=== PATIENT | male | born 1990 ===

== ENCOUNTER 2016-11-14 10:25 | Emergency (ER) | payer BC ==
--- NOTE | 2016-11-14 13:56 | UC ---
Ear Complaint HPI - HPI Summary HPI Summary: ONE DAY OF SEVERE LEFT EAR PAIN. PATIENT IS A [employer] TE[employer], SCHOOL NURSE LOOKED IN EAR AND THOUGHT LEGO WAS IN EAR. IN TRIAGE NURSE LOOKED IN BILATERAL EARS, CERUMEN AND EAR TUBES NOTED. [facility] DID NOT RECALL HAVING EAR TUBES SINCE 8TH GRADE. - History of Current Complaint Chief Complaint: UCEar Stated Complaint: LEFT EAR COMPLAINT Time Seen by Provider: 11/14/16 13:17 Hx Obtained From: Patient, Family/Hose Inspector Onset/Duration: Sudden Onset, Lasting Hours Severity Initially: Moderate Severity Currently: Moderate Associated Signs/Symptoms: Positive: Foreign Body Sensation. Negative: Discharge, Hearing Loss, Swelling @, URI Symptoms - Allergies/Home Medications Allergies/Adverse Reactions: Allergies Allergy/AdvReac Type Severity Reaction Status Date / Time No Known Allergies Allergy Verified 11/14/16 12:33 Home Medications: Home Medications Loratadine [Allergy Relief] 2 tab PO PRN 11/14/16 [History] PMH/Surg Hx/FS Hx/Imm Hx Previously Healthy: Yes - Surgical History Surgical History: Yes Surgery Procedure, Year, and Place: ear tubes as a child - Family History Known Family History: Negative: Respiratory Disease - Social History Occupation: Employed Full-time Lives: With Family Alcohol Use: Occasionally Substance Use Type: None Smoking Status (MU): Current Some Day Smoker Type: Cigars Amount Used/How Often: occ usage "when weather is nice" Review of Systems Constitutional: Negative Skin: Negative Eyes: Negative ENT: Ear Ache - LEFT Respiratory: Negative Cardiovascular: Negative Gastrointestinal: Negative Genitourinary: Negative Motor: Negative Neurovascular: Negative Musculoskeletal: Negative Neurological: Negative Psychological: Negative Is Patient Immunocompromised?: No All Other Systems Reviewed And Are Negative: Yes Physical Exam Triage Information Reviewed: Yes Appearance: Well-Appearing, Well-Nourished, Pain Distress - MODERATE Vital Signs: Initial Vital Signs Temp 98.4 F 11/14/16 12:20 Pulse 88 11/14/16 12:20 Resp 14 11/14/16 12:20 BP 130/94 11/14/16 12:20 Pulse Ox 97 11/14/16 12:20 Vital Signs Reviewed: Yes Eye Exam: Normal ENT: Positive: Hearing grossly normal, Pharynx normal, Other: - BILATERAL EARTUBES PARTIALLY IN PLACE WITH CERUMEN Dental Exam: Normal Neck exam: Normal Neck: Positive: Supple, Nontender, No Lymphadenopathy Respiratory Exam: Normal Respiratory: Positive: Chest non-tender, Lungs clear, Normal breath sounds, No respiratory distress, No accessory muscle use Cardiovascular Exam: Normal Cardiovascular: Positive: RRR, No Murmur, Pulses Normal Abdominal Exam: Normal Musculoskeletal Exam: Normal Musculoskeletal: Positive: Strength Intact, ROM Intact Neurological Exam: Normal Psychological Exam: Normal Psychological: Positive: Normal Response To Family Skin Exam: Normal Ear Complaint Course/Dx - Course Course Of Treatment: PATEINT STATED DR [facility] DID REPAIR IN CHILDHOOD. CALLED DR [facility], THEY STATE THAT PATIENT HAD EAR TUBES PLACED ON . MADE AN APPOINTMENT FOR EVALUATION ON Saturday11/16/16 AT 10:30AM. - Differential Dx/Diagnosis Differential Diagnosis/HQI/PQRI: Otitis Externa, Otitis Media, URI Provider Diagnoses: LEFT OTALGIA, BILATERAL EARTUBES - Physician Notifications Discussed Patient Care With: Jose Evangelista Time Discussed With Above Provider: 12:30 Instructed by Provider To: Have Pt Call For Appt. Discharge - Discharge Plan Condition: Stable Disposition: HOME Prescriptions: Amoxicillin/Clavulanate TAB* [Augmentin TAB 875*] 875 mg PO BID #20 tab Patient Education Materials: Ear Foreign Body (ED), Earache (ED) Forms: *Work Release Referrals: Jose Evangelista MD [Medical Doctor] - 11/16/16 10:25 am Rudy Phillips MD [Primary Care Provider] -
== END 2016-11-14 14:02 | disposition home or self-care (01) ==
LOC: UCCORT 10:25
DX: H92.02 Otalgia, left ear (principal); F17.200 Nicotine dependence, unspecified, uncomplicated; Z96.22 Myringotomy tube(s) status
CPT/HCPCS: 99202; G0463